=== PATIENT | female | born 1970 | race African-American/Black ===

== ENCOUNTER 2023-06-22 00:37 | Emergency (ER) | payer OTHER ==
[~2023-06-22] VITALS: Ht 162.6 cm; Wt 52.0 kg
[~2023-06-22 00:37] MED LIST: OLAN20TA34 PO; TRAZ-251 PO
[2023-06-22 00:43] VITALS: O2SAT 100
[2023-06-22 01:37] LABS: BASOPHILS % 0.7 % (0.0-2.0); EOSINOPHILS % 1.8 % (0.0-5.0); HEMATOCRIT. 37.9 % (36.0-48.0); HEMOGLOBIN. 12.1 g/dL (12.0-16.0); LYMPHOCYTES % 8.9 % (20.0-50.0); MEAN CORPUSCULAR HEMOGLOBIN 28.2 pg (28.0-32.0); MEAN CORPUSCULAR HGB CONC 31.9 g/dL (31.0-37.0); MEAN CORPUSCULAR VOLUME 88.6 fL (81.0-99.0); MEAN PLATELET VOLUME 7.6 fl (7.4-10.4); MONOCYTES % 10.5 % (2.0-8.0); NEUTROPHILS % 78.1 % (40.0-76.0); PLATELET 561 x1000/uL (130-400); RED BLOOD CELL COUNT 4.28 mill/uL (4.2-5.4); RED CELL DISTRIBUTION WIDTH 12.8 % (11.6-14.6); WHITE BLOOD COUNT 15.3 x1000/uL (4.5-11.0)
[2023-06-22 01:48] LABS: PROTHROMBIN TIME 10.9 sec (9.6-11.0)
[2023-06-22 01:50] LABS: ALANINE AMINOTRANSFERASE 72 IU/L (10-49); ASPARTATE AMINOTRANSFERASE 42 IU/L (<34); BILIRUBIN TOTAL 0.4 mg/dL (0.1-1.0); CALCIUM 9.6 mg/dL (8.7-10.4); CARBON DIOXIDE 23 mEq/L (21-32); CHLORIDE 105 mEq/L (98-107); CREATININE 0.5 mg/dL (0.6-1.0); GLUCOSE 97 mg/dL (70-105); POTASSIUM 3.7 mEq/L (3.5-5.1); PROTEIN TOTAL 6.6 g/dL (6.0-8.3); SODIUM 142 mEq/L (136-145); UREA NITROGEN BLOOD 12 mg/dL (9-23)
[2023-06-22 01:54] LABS: ETHANOL BLOOD < 10 mg/dL (<10)
[2023-06-22 01:57] LABS: CREATINE KINASE 754 IU/L (34-145)
[2023-06-22] MEDS ORDERED: CEFTRIAXONE 1GM PREMIX 50 ML IV NR (03:15)
[2023-06-22] MEDS ORDERED: SODIUM CHLORIDE 0.9% 500 ML IV NR (03:15)
[2023-06-22] MEDS ORDERED: METRONIDAZOLE 500 MG PREMIX 100 ML IV NR (03:15)
[2023-06-22 10:24] VITALS: BP 156/77; PULSE 100; RESP 16; TEMP 98.8
== END 2023-06-22 10:58 | disposition short-term general hospital (02) ==
LOC: ER 00:37
DX: K62.89 Other specified diseases of anus and rectum (principal); K92.2 Gastrointestinal hemorrhage, unspecified; G35 Multiple sclerosis; F31.9 Bipolar disorder, unspecified; F20.9 Schizophrenia, unspecified; Z88.8 Allergy status to other drugs, medicaments and biological substances
CPT/HCPCS: 80053; 80320; 82270; 82550; 83605; 83690; 85025; 85610; 86850; 86900; 86901; 87040; 36415; 84145; 74176; 96365; 96375; 99285; J0696; J3490; Z7610; G0480